=== PATIENT | male | born 1985 | race Asian ===

== ENCOUNTER 2021-02-05 04:06 | Emergency (ER) | payer OTHER ==
[~2021-02-05] VITALS: Ht 162.6 cm; Wt 75.3 kg
--- NOTE | 2021-02-05 04:19 | NUR ---
PT C/O OF LACERATION ON BACK OF HEAD. PT FELL IN PARKING LOT AND LANDED ON HIS HEAD. DENIES LOC, BLURRED VISION, AND VOMITING. PT APPEARS TO BE INTOXICATED. ATTACHED TO MONITORS. VSS. CALL LIGHT WITHIN REACH. BED IN LOW POSITION. RAILS ENGAGED.
[2021-02-05] MEDS ORDERED: DIPH,PERTUSS(ACELL),TET VAC/PF 0.5 ML IM-VACC ONE ×2 (04:30→04:40)
[2021-02-05] MEDS ORDERED: LIDOCAINE 1%-EPI 1:100K, 20ML INFIL ONE (04:30)
[2021-02-05] MEDS ORDERED: LIDOCAINE 1%-EPI 1:100K, 20ML ONE (04:39)
--- NOTE | 2021-02-05 04:44 | NUR ---
PT OFF UNIT IN IMAGING.
--- NOTE | 2021-02-05 04:49 | NUR ---
Patient is resting comfortably in bed. Bed in lowest, rails engaged, call light on lap. CONNECTED TO MONITORS. Vital Signs within normal limits. WCTM.
--- NOTE | 2021-02-05 05:23 | NUR ---
AT BEDSIDE PERFORMING SUTURE CARE.
[2021-02-05 05:59] VITALS: BP 119/78
--- NOTE | 2021-02-05 05:59 | NUR ---
Patient/Caregiver given discharge instructions and they have confirmed that they understand the instructions. Patient ambulatory with steady gait. NAD, all questions answered appropriately, denies additional needs at this time. No personal belongings left in room after discharge.
== END 2021-02-05 06:01 | disposition home or self-care (01) ==
LOC: ED 05:55
DX: S01.91XA Laceration without foreign body of unspecified part of head, initial encounter (principal); W01.0XXA Fall on same level from slipping, tripping and stumbling without subsequent striking against object, initial encounter; Y93.89 Activity, other specified; Y92.410 Unspecified street and highway as the place of occurrence of the external cause; Y99.8 Other external cause status
CPT/HCPCS: 12002; 70450; 90471; 90715; 99284